=== PATIENT | male | born 1930 | race African-American/Black ===

== ENCOUNTER 2016-12-28 15:32 | Inpatient (IN) | payer MEDICARE, OTHER ==
[~2016-12-28] VITALS: Ht 188 cm; Wt 82.4 kg
[2016-12-28 16:38] VITALS: BP 142/70
[2016-12-28] MEDS ORDERED: AMLODIPINE BESYL5 MG PO (16:52)
[2016-12-28] MEDS ORDERED: MEDI-FIRST ASP325 MG PO (16:52)
[2016-12-28] MEDS ORDERED: NORCO 325 MG-7.1 TA1 PO (16:53)
[2016-12-28] MEDS ORDERED: ULTRAM50 M1 PO (16:53)
[2016-12-28] MEDS ORDERED: SIMBRINZA 0.2%-18 ML OP (16:54)
[2016-12-28] MEDS ORDERED: ACETAMINOPHEN325 M3 PO (16:54)
[2016-12-28] MEDS ORDERED: CARDURA2 MG PO (16:54)
[2016-12-28 18:50] VITALS: BP 152/77
[2016-12-29] VITALS (7 sets, daily range): BP systolic 126–159; BP diastolic 51–81
[2016-12-30 06:39] VITALS: BP 124/71
[2016-12-30 07:27] VITALS: BP 124/71
[2016-12-30 18:40] VITALS: BP 144/59
[2016-12-31 06:27] VITALS: BP 133/72
[2016-12-31 06:28] VITALS: BP 133/72
[2016-12-31 18:33] VITALS: BP 137/65
[2017-01-01 06:34] VITALS: BP 157/76
[2017-01-01 06:35] VITALS: BP 157/76
[2017-01-01 08:00] VITALS: BP 138/79
[2017-01-01 18:13] VITALS: BP 139/65
[2017-01-01 18:14] VITALS: BP 139/65
[2017-01-02 06:35] VITALS: BP 133/77
[2017-01-02 06:36] VITALS: BP 133/77
[2017-01-02 18:12] VITALS: BP 168/80
[2017-01-03 06:24] VITALS: BP 163/78
[2017-01-03 06:25] VITALS: BP 163/78
[2017-01-03 07:17] VITALS: BP 166/84
[2017-01-03 18:28] VITALS: BP 171/88
[2017-01-04 06:26] VITALS: BP 167/94
[2017-01-04 06:27] VITALS: BP 167/94
[2017-01-04 14:15] VITALS: BP 152/74
[2017-01-04 18:20] VITALS: BP 139/56
[2017-01-05 06:32] VITALS: BP 142/79
[2017-01-05 06:33] VITALS: BP 142/79
[2017-01-05 18:54] VITALS: BP 144/76
[2017-01-06 06:49] VITALS: BP 180/88
[2017-01-06 18:00] VITALS: BP 184/86
[2017-01-06 18:07] VITALS: BP 184/86
[2017-01-07 06:32] VITALS: BP 193/87
[2017-01-07 18:32] VITALS: BP 158/68
[2017-01-08 06:53] VITALS: BP 162/91
[2017-01-08 18:31] VITALS: BP 138/69
[2017-01-09 06:50] VITALS: BP 171/88
[2017-01-09 18:42] VITALS: BP 138/71
[2017-01-10 06:45] VITALS: BP 124/71
[2017-01-10 06:47] VITALS: BP 180/94
[2017-01-10 18:38] VITALS: BP 172/89
[2017-01-10 18:39] VITALS: BP 172/89
[2017-01-11 06:47] VITALS: BP 188/104
[2017-01-11 09:44] VITALS: BP 179/94
[2017-01-11 10:05] VITALS: BP 126/57
[2017-01-11 18:23] VITALS: BP 155/80
[2017-01-11 18:24] VITALS: BP 155/80
[2017-01-12 06:36] VITALS: BP 157/81
[2017-01-12 18:17] VITALS: BP 150/71
[2017-01-13 06:23] VITALS: BP 192/101
[2017-01-13 06:24] VITALS: BP 192/101
[2017-01-13 15:00] VITALS: BP 143/70
[2017-01-13 18:19] VITALS: BP 153/67
[2017-01-13 18:20] VITALS: BP 153/67
[2017-01-14 06:31] VITALS: BP 160/78
[2017-01-14 18:25] VITALS: BP 158/73
[2017-01-15 06:44] VITALS: BP 158/86
[2017-01-15 06:45] VITALS: BP 158/86
[2017-01-15 18:28] VITALS: BP 167/71
[2017-01-16 06:48] VITALS: BP 179/94
[2017-01-16 18:19] VITALS: BP 155/78
[2017-01-16 18:20] VITALS: BP 155/78
[2017-01-17 06:27] VITALS: BP 148/80
[2017-01-17 06:30] VITALS: BP 148/80
[2017-01-17 18:27] VITALS: BP 164/89
[2017-01-17 18:28] VITALS: BP 164/89
[2017-01-18 06:27] VITALS: BP 153/78
[2017-01-18 06:29] VITALS: BP 153/78
[2017-01-18 13:05] VITALS: BP 151/77
[2017-01-18 17:53] VITALS: BP 160/73
[2017-01-19 06:29] VITALS: BP 162/87
[2017-01-19 18:42] VITALS: BP 154/83
[2017-01-19 18:43] VITALS: BP 154/83
[2017-01-20 06:21] VITALS: BP 155/79
[2017-01-20 06:22] VITALS: BP 155/79
[2017-01-20 18:32] VITALS: BP 166/82
[2017-01-20 18:33] VITALS: BP 166/82
[2017-01-20 20:20] VITALS: BP 165/82
[2017-01-21 06:26] VITALS: BP 135/87
[2017-01-21 18:11] VITALS: BP 139/64; BP 139/74
[2017-01-22 05:40] VITALS: BP 145/84
[2017-01-22 06:00] VITALS: BP 145/84
[2017-01-22 11:29] VITALS: BP 110/54
[2017-01-22 16:30] VITALS: BP 126/64
[2017-01-22 18:23] VITALS: BP 129/68
[2017-01-22 18:24] VITALS: BP 129/68
[2017-01-23 06:14] VITALS: BP 138/81
[2017-01-23 06:16] VITALS: BP 138/81
[2017-01-23 18:17] VITALS: BP 134/67
[2017-01-24 06:43] VITALS: BP 175/86
[2017-01-24 18:33] VITALS: BP 219/95
[2017-01-25 06:40] VITALS: BP 153/87
[2017-01-25 06:42] VITALS: BP 158/78
[2017-01-25 18:16] VITALS: BP 122/69
[2017-01-25 18:32] VITALS: BP 167/75
[2017-01-26 06:42] VITALS: BP 162/89
[2017-01-26 11:09] VITALS: BP 133/64
[2017-01-26 17:02] VITALS: BP 141/68
[2017-01-26 18:22] VITALS: BP 160/74
[2017-01-27 06:32] VITALS: BP 165/78
[2017-01-27 06:33] VITALS: BP 165/78
[2017-01-27 07:54] VITALS: BP 173/80
[2017-01-27 18:35] VITALS: BP 125/59
[2017-01-27 18:37] VITALS: BP 125/59
[2017-01-28 06:35] VITALS: BP 124/68
[2017-01-28 06:36] VITALS: BP 124/68
[2017-01-28 18:34] VITALS: BP 180/83
[2017-01-28 18:36] VITALS: BP 163/83
[2017-01-29 06:23] VITALS: BP 137/82
[2017-01-29 06:24] VITALS: BP 137/82
[2017-01-29 11:10] VITALS: BP 124/63
[2017-01-29 16:45] VITALS: BP 157/85
[2017-01-29 18:40] VITALS: BP 150/76
[2017-01-30 06:38] VITALS: BP 152/92
[2017-01-30 06:41] VITALS: BP 152/92
[2017-01-30 10:37] VITALS: BP 136/75
[2017-01-30 18:00] VITALS: BP 187/86
[2017-01-30 18:37] VITALS: BP 109/70
[2017-01-31 06:21] VITALS: BP 161/85
[2017-01-31 06:22] VITALS: BP 161/85
[2017-01-31 11:40] VITALS: BP 146/72
[2017-01-31 13:10] VITALS: BP 134/77
[2017-01-31 17:00] VITALS: BP 180/89
[2017-01-31 18:07] VITALS: BP 154/78
[2017-02-01 06:25] VITALS: BP 166/101
[2017-02-01 18:01] VITALS: BP 142/76
[2017-02-01 18:02] VITALS: BP 142/76
[2017-02-02 06:29] VITALS: BP 169/79
[2017-02-02 06:30] VITALS: BP 169/79
[2017-02-02 18:37] VITALS: BP 158/86
[2017-02-02 18:38] VITALS: BP 130/77
[2017-02-03 06:22] VITALS: BP 167/100
[2017-02-03 12:43] VITALS: BP 140/71
[2017-02-03 17:56] VITALS: BP 159/83; BP 163/93
[2017-02-04 06:32] VITALS: BP 101/57; BP 142/84
[2017-02-04 19:04] VITALS: BP 129/65; BP 134/60
[2017-02-05 06:23] VITALS: BP 106/55; BP 152/82
[2017-02-05 18:05] VITALS: BP 141/77; BP 150/75
[2017-02-06 06:30] VITALS: BP 112/61; BP 157/83
[2017-02-06 12:29] VITALS: BP 136/76
[2017-02-06 17:50] VITALS: BP 165/85
[2017-02-07 06:22] VITALS: BP 111/57; BP 150/91
[2017-02-07 12:38] VITALS: BP 142/74
[2017-02-07 18:11] VITALS: BP 146/76
[2017-02-08 06:24] VITALS: BP 148/84
[2017-02-08 06:29] VITALS: BP 148/84
[2017-02-08 10:27] VITALS: BP 136/64
[2017-02-08 15:00] VITALS: BP 149/82
[2017-02-08 17:56] VITALS: BP 127/77
[2017-02-09 06:14] VITALS: BP 137/82
[2017-02-09 06:16] VITALS: BP 137/82
[2017-02-09 15:43] VITALS: BP 124/75
[2017-02-09 17:41] VITALS: BP 148/78
[2017-02-10 06:13] VITALS: BP 127/69; BP 146/86
[2017-02-10 14:38] VITALS: BP 144/66
[2017-02-10 18:03] VITALS: BP 126/70
[2017-02-11 06:34] VITALS: BP 155/85
[2017-02-11 06:35] VITALS: BP 155/85
[2017-02-11 13:20] VITALS: BP 116/61
[2017-02-11 18:08] VITALS: BP 149/77
[2017-02-12 06:27] VITALS: BP 175/95
[2017-02-12 06:28] VITALS: BP 154/89
[2017-02-12 12:51] VITALS: BP 139/62
[2017-02-12 17:43] VITALS: BP 172/78
[2017-02-13 06:41] VITALS: BP 128/69
[2017-02-13 06:42] VITALS: BP 156/83
[2017-02-13 12:56] VITALS: BP 135/63
[2017-02-13 18:03] VITALS: BP 131/71
[2017-02-14 06:02] VITALS: BP 116/62; BP 183/93
[2017-02-14 18:20] VITALS: BP 117/69
[2017-02-14 18:23] VITALS: BP 144/77
[2017-02-15 06:25] VITALS: BP 152/82
[2017-02-15 06:27] VITALS: BP 152/82
[2017-02-15 17:26] VITALS: BP 130/73
[2017-02-15 17:27] VITALS: BP 140/76
[2017-02-16 06:29] VITALS: BP 155/87; BP 173/101
[2017-02-16 10:31] VITALS: BP 121/78
[2017-02-16 17:47] VITALS: BP 140/80
[2017-02-17 06:22] VITALS: BP 168/86
[2017-02-17 06:23] VITALS: BP 168/86
[2017-02-17 18:35] VITALS: BP 137/63
[2017-02-18 06:25] VITALS: BP 159/87
[2017-02-18 18:02] VITALS: BP 136/73
[2017-02-19 06:29] VITALS: BP 177/97
[2017-02-19 18:08] VITALS: BP 159/75
[2017-02-20 06:25] VITALS: BP 119/68
[2017-02-20 19:00] VITALS: BP 110/80
[2017-02-21 06:27] VITALS: BP 176/91
[2017-02-21] MEDS ORDERED: KEPPRA 500MG500 MG PO (07:35)
[2017-02-21] MEDS ORDERED: FLORINEF 00.1 MG/TAB PO (07:35)
[2017-02-21] MEDS ORDERED: LATANOPROST 2.2.5 ML OP (07:36)
[2017-02-21] MEDS ORDERED: Patient's Own Medica OP (07:36)
[2017-02-21 10:02] VITALS: BP 176/91
== END 2017-02-21 10:38 | DRG 561 ==
LOC: MED/SURG 15:32
PROVIDERS: ADMIT Physician Assistant
DX: S72.002D Fracture of unspecified part of neck of left femur, subsequent encounter for closed fracture with routine healing (principal); R53.81 Other malaise; I95.2 Hypotension due to drugs; T44.6X5A Adverse effect of alpha-adrenoreceptor antagonists, initial encounter; N40.0 Benign prostatic hyperplasia without lower urinary tract symptoms; B35.1 Tinea unguium; I10 Essential (primary) hypertension; W19.XXXD Unspecified fall, subsequent encounter; Z85.46 Personal history of malignant neoplasm of prostate; Z87.891 Personal history of nicotine dependence; Z96.642 Presence of left artificial hip joint; R94.01 Abnormal electroencephalogram [EEG]; R41.3 Other amnesia
CPT/HCPCS: A9270-GY; A9500; J0834; J7120

== ENCOUNTER → 2017-03-10 | Outpatient (CLI) | payer MEDICARE, OTHER ==
[2017-02-21 10:02] VITALS: BP 176/91
[~2017-03-10] MED LIST: ACETAMINOPHEN325 M3 PO; AMLODIPINE BESYL5 MG PO; CARDURA2 MG PO; FLORINEF 00.1 MG/TAB PO; KEPPRA 500MG500 MG PO; LATANOPROST 2.2.5 ML OP; MEDI-FIRST ASP325 MG PO; NORCO 325 MG-7.1 TA1 PO; Patient's Own Medica OP; SIMBRINZA 0.2%-18 ML OP; ULTRAM50 M1 PO
[2017-03-10 07:07] LABS: HEMATOCRIT 27.3 % (42.0-52.0); HEMOGLOBIN 8.7 g/dL (13.5-18.0); MEAN PLATELET VOLUME 9.4 fl (7.4-10.4); RED BLOOD COUNT 3.07 M/mm3 (4.20-5.60); RED CELL DISTRIBUTION WIDTH 13.5 % (11.5-14.5); WHITE BLOOD COUNT 13.7 K/mm3 (4.8-10.8)
== END ==
LOC: LAB 05:35
PROVIDERS: Internal Medicine
DX: I95.1 Orthostatic hypotension (principal)

== ENCOUNTER → 2017-03-11 | Outpatient (CLI) | payer MEDICARE, OTHER ==
[2017-02-21 10:02] VITALS: BP 176/91
[2017-03-11 11:15] LABS: URINE COLOR YELLOW
[2017-03-11 11:16] LABS: URINE APPEARANCE CLOUDY; URINE BILIRUBIN NEGATIVE (NEGATIVE); URINE BLOOD NEGATIVE (NEGATIVE); URINE GLUCOSE NEGATIVE (NEGATIVE); URINE KETONE NEGATIVE (NEGATIVE); URINE LEUKOCYTE ESTERASE 2+ (NEGATIVE); URINE NITRATE POSITIVE (NEGATIVE); URINE PROTEIN(semi-quant) TRACE mg/dL (NEGATIVE); URINE UROBILINOGEN NORMAL (NORMAL); URINE WBC >50 /hpf (0-3)
[2017-03-11 11:17] LABS: URINE MUCUS PRESENT (NOT PRESENT)
== END ==
LOC: LAB 10:23
PROVIDERS: Internal Medicine
DX: F32.9 Major depressive disorder, single episode, unspecified (principal)

== ENCOUNTER → 2017-03-16 | Outpatient (CLI) | payer MEDICARE, OTHER ==
[2017-02-21 10:02] VITALS: BP 176/91
[2017-03-16 05:57] LABS: HEMATOCRIT 29.8 % (42.0-52.0); HEMOGLOBIN 9.3 g/dL (13.5-18.0)
[2017-03-16 06:06] LABS: BUN/CREATININE RATIO 11.9 (6.0-26.0); POTASSIUM 4.3 mmol/L (3.6-5.0)
[2017-03-16 16:52] LABS: CALCIUM 10.3 mg/dL (8.4-10.2)
== END ==
LOC: LAB 05:34
PROVIDERS: Internal Medicine
DX: I95.1 Orthostatic hypotension (principal); I95.0 Idiopathic hypotension